=== PATIENT | female | born 2005 | race Caucasian/White ===

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

== ENCOUNTER 2025-06-03 13:02 | Emergency (ER) | payer OTHER, SELFPAY ==
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
[2025-06-03 13:19] VITALS: BP 143/84; PULSE 77; RESP 16; TEMP 37; O2SAT 99; BMI 28.8
--- OUTSIDE RECORDS SUMMARY | 2025-06-03 17:53 | XMS_ITS | Encounter Summary ---
Author Organization [facility] Address [address] [place] [address] Phone Care Team Providers Care Farmer And Grazier Name Role Phone Sheila Red 7TH GRADE TEACHER Primary Care Provider [phone] Encounter Details Date Type Department Care Team (Late st Contact Info) Description 07/07/2014 Conversion Encounter [facility] [address] [place] [address] [place] [address] Social History Tobacco Use Types Packs/Day Years Used Date Smoking Tobacco: Never Assessed Comments Unknown Sex and Gender Information Value Date Recorded Sex Assigned at Not on file Legal Sex Female 6:26 PM EDT Gender Identity Female 07/29/2024 8:23 AM EST Sexual Orientation Straight 06/18/2019 10 :25 AM EDT documented as of this encounter Plan of Treatment Not on file documented as of this encounter Visit Diagnoses Not on filedocumented in this encounter Care Teams Farmer And Grazier Relationship Specialty Start Date End Date Sheila Red NP [address] [place] [address] PCP - General Pediatrics 06/22/21 04/05/25 documented as of this encounter
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
== END 2025-06-03 14:03 | disposition left against medical advice (07) ==
PROVIDERS: Emergency Provider Emergency Medicine
DX: M79.672 Pain in left foot (principal)
CPT/HCPCS: 99281